=== PATIENT | female | born 1970 | race Caucasian/White ===

== ENCOUNTER 2018-06-16 14:18 | Emergency (ER) | payer MEDICAID ==
[2018-06-16 14:24] VITALS: BP 132/95
[2018-06-16] MEDS ORDERED: ALBUTEROL INH PREPACK MDI TAKEHOME ONE (14:55)
[2018-06-16] MEDS ORDERED: ACYCLOVIR 400 MG TAB PO ONE (14:57)
--- NOTE | 2018-06-16 14:57 | EDPHY ---
H & P Stated Complaint: cough/ sob laryngitis Time Seen by Provider: 06/16/18 14:52 HPI/ROS: CHIEF COMPLAINT: Cough, herpes HISTORY OF PRESENT ILLNESS: The patient is a 47-year-old homeless female who comes to the emergency department complaining of a cough for the last 3 weeks. No fever. Nonproductive. She states that albuterol inhalers have helped her in the past. She denies history of asthma or COPD. She does smoke. She also complains of some herpes lesions on her genitals. She has had the before. She is requesting a prescription for acyclovir. Severity: Moderate Modifying factors: None REVIEW OF SYSTEMS: Constitutional: denies: chills, fever, recent illness, recent injury EENTM: denies: blurred vision, double vision, nose congestion Respiratory: See HPI Cardiac: denies: chest pain, irregular heart rate, lightheadedness, palpitations Gastrointestinal/Abdominal: denies: abdominal pain, diarrhea, nausea, vomiting, blood streaked stools Genitourinary: See HPI denies: dysuria, frequency, hematuria, pain Musculoskeletal: denies: joint pain, muscle pain Skin: denies: lesions, rash, jaundice, bruising Neurological: denies: headache, numbness, paresthesia, tingling, dizziness, weakness Hematologic/Lymphatic: denies: blood clots, easy bleeding, easy bruising Immunologic/allergic: denies: HIV/AIDS, transplant 10 systems reviewed and negative except as noted EXAM: GENERAL: Well-appearing, well-nourished and in no acute distress. HEAD: Atraumatic, normocephalic. EYES: Pupils equal round and reactive to light, extraocular movements intact, sclera anicteric, conjunctiva are normal. ENT: TMs normal, nares patent, oropharynx clear without exudates. Moist mucous membranes. NECK: Normal range of motion, supple without lymphadenopathy or JVD. LUNGS: Breath sounds clear to auscultation bilaterally and equal. No wheezes rales or rhonchi. HEART: Regular rate and rhythm without murmurs, rubs or gallops. ABDOMEN: Soft, nontender, normoactive bowel sounds. No guarding, no rebound. No masses appreciated. Declined genital exam BACK: No CVA tenderness, no spinal tenderness, step-offs or deformities EXTREMITIES: Normal range of motion, no pitting or edema. No clubbing or cyanosis. NEUROLOGICAL: Cranial nerves II through XII grossly intact. Normal speech, normal gait. 5/5 strength, normal movement in all extremities, normal sensation , normal reflexes PSYCH: Normal mood, normal affect. SKIN: Warm, dry, normal turgor, no visible rashes or lesions. 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 - Family History Significant Family History: No pertinent family hx - Social History Smoking Status: Heavy smoker Alcohol Use: Sober Drug Use: None Constitutional: Initial Vital Signs Temperature (C) 37.2 C 06/16/18 14:21 Heart Rate 106 H 06/16/18 14:21 Respiratory Rate 18 06/16/18 14:21 Blood Pressure 132/95 H 06/16/18 14:21 O2 Sat (%) 95 06/16/18 14:21 O2 Delivery Mode Room Air Allergies/Adverse Reactions: Penicillins Allergy (Severe, Verified 05/11/16 11:24) Hives Home Medications: Medication Instructions Recorded Acyclovir 400 mg PO TID 10 Days #30 tablet 06/16/18 Promethazine HCl/Codeine 5 ml PO Q4-6PRN PRN #90 ml 06/16/18 [Prometh-Codein 6.25-10 mg/5 ml] Medical Decision Making ED Course/Re-evaluation: The patient is requesting albuterol as well as acyclovir. I will prescribe her both of these. Also I will prescribe her cough medication. She is afebrile. She is not hypoxic. Her lung exam is clear. Suspect that she has a viral bronchitis rather than pneumonia. We discussed indications for returning if her symptoms are not improving. She is happy with this plan and declines further workup testing at this time. Differential Diagnosis: Partial list of the Differential diagnosis considered include but were not limited to; bronchitis, upper respiratory tract infection, pharyngitis, herpes and although unlikely based on the history and physical exam, I also considered pneumonia, PE, cardiac disease. I discussed these differential diagnoses and the plan with the patient as well as the usual and expected course. The patient understands that the diagnosis is provisional and that in medicine we are not always correct and that further workup is often warranted. Usual and customary warnings were given. All of the patient's questions were answered. The patient was instructed to return to the emergency department should the symptoms at all worsen or return, otherwise to followup with the physician as we discussed. - Data Points Medications Given: Discontinued Medications Acyclovir (Acyclovir) 800 mg PO EDNOW ONE Stop: 06/16/18 14:58 Last Admin: 06/16/18 15:04 Dose: 800 mg Albuterol Sulfate (Proventil Inh Prepack) 1 mdi TAKEHOME EDNOW ONE Stop: 06/16/18 14:56 Last Admin: 06/16/18 15:05 Dose: 1 mdi Departure - Departure Disposition: Home, Routine, Self-Care Clinical Impression: Acute bronchitis Qualifiers: Bronchitis organism: other organism Qualified Code(s): J20.8 - Acute bronchitis due to other specified organisms Herpes genitalia Qualifiers: Herpes simplex infection site: unspecified Qualified Code(s): A60.00 - Herpesviral infection of urogenital system, unspecified Condition: Fair Instructions: Albuterol (By breathing), Genital Herpes Simplex (ED), Acute Bronchitis (ED) Referrals: NONE *PRIMARY CARE P,. [Primary Care Provider] - As per Instructions [facility],. [Clinic] - 2-3 days, call for appt. Prescriptions: Acyclovir 400 mg PO TID 10 Days #30 tablet Promethazine HCl/Codeine [Prometh-Codein 6.25-10 mg/5 ml] 5 ml PO Q4-6PRN PRN # 90 ml PRN Reason: Cough, Moderate
== END 2018-06-16 15:09 | disposition home or self-care (01) ==
DX: J20.8 Acute bronchitis due to other specified organisms (principal); A60.00 Herpesviral infection of urogenital system, unspecified; Z59.0 Homelessness; Z88.0 Allergy status to penicillin